=== PATIENT | female | born 1965 | race Caucasian/White ===

== ENCOUNTER 2021-07-03 19:02 | Emergency (ER) | payer BC ==
[2021-07-03 21:55] LABS: HEMOGLOBIN 15.1 gm/dl (12.3-15.3); RED BLOOD COUNT 5.15 M/UL (4.00-5.10); WHITE BLOOD COUNT 8.3 K/UL (4.5-11.0)
[2021-07-03 22:15] LABS: BUN/CREATININE RATIO 13 (0-10)
[2021-07-03] MEDS ORDERED: IBUPROFEN600 MG PO (22:56)
== END 2021-07-04 00:26 | disposition home or self-care (01) ==
LOC: ER1 19:02
PROVIDERS: Nurse Practitioner
DX: I10 Essential (primary) hypertension (principal); M79.601 Pain in right arm; M25.521 Pain in right elbow; M79.631 Pain in right forearm; M25.531 Pain in right wrist; Z79.899 Other long term (current) drug therapy; Z88.5 Allergy status to narcotic agent
CPT/HCPCS: 71045; 73070; 73090; 73100; 80053; 81001; 82550; 82553; 84484; 85025; 93005; 96374; 99284; J1885